=== PATIENT | female | born 1955 | race Caucasian/White ===

== ENCOUNTER 2016-12-15 13:50 | Emergency (ER) | payer MEDICARE, OTHER ==
[~2016-12-15] VITALS: Ht 162.6 cm; Wt 85.0 kg
[~2016-12-15 13:50] MED LIST: ACET1TAB40 PO; ASPI-664 PO; ATOR40TA68 PO; BENA10TA48 PO; CARV3.1260 PO; CHOL2000 PO; CITA-104 PO; FAMO40TA52 PO; GLUC100015 PO
[2016-12-15 14:16] VITALS: Ht 162.6 cm; Wt 85.0 kg
== END 2016-12-15 18:45 | disposition left against medical advice (07) ==
LOC: E/R 13:50
DX: Z53.21 Procedure and treatment not carried out due to patient leaving prior to being seen by health care provider (principal)

== ENCOUNTER 2017-01-07 20:50 | Emergency (ER) | payer MEDICARE, OTHER ==
[~2017-01-07] VITALS: Wt 72.5 kg
[2017-01-08] MEDS ORDERED: ONDANSETRON (ODT) 4 MG TAB ODT STA (01:23)
[2017-01-08] MEDS ORDERED: HYDROCODONE/APAP (5/325) TAB PO ONE (01:30)
[2017-01-08 01:49] LABS: URINE BLOOD (Dip) POC 1+ (NEGATIVE)
--- NOTE | 2017-01-08 01:51 | ERD ---
ER Documentation Chief Complaint Date/Time DATE: 01/08/17 TIME: 01:48 Chief Complaint COUGH AND HEADACHE FOR THE PAST FEW MOS. NO NEURO DEF. NO TRAUMA HPI This is a 61-year-old female who presents to the emergency department today complaining of cough for the past 3 months and a headache that started yesterday. Patient states she took tramadol for the headache with no improvement in symptoms. States she has some nausea but no vomiting. Denies any blurred vision, light sensitivity. Patient has been seen by her primary care physician and has had a chest x-ray done and is awaiting her results in a couple of days. Patient states that her cough is dry. Denies any fevers or chills or shortness of breath currently ROS All systems reviewed and are negative except as per history of present illness. Medications Home Meds Active Scripts Nitrofurantoin Monohyd Macrocr* (Macrobid*) 100 Mg Capsr, 100 MG PO BID for 7 Days, CAP Prov:STEVE JOHNSON PA-C 01/08/17 Azithromycin* (Zithromax*) 250 Mg Tablet, 250 MG PO .ROBERT DIRECTED, #6 TAB TAKE 500 MG (2 TABS) THE FIRST DAY THEN 250 MG (1 TAB) DAYS 2-5 Prov:STEVE JOHNSON PA-C 01/08/17 Naproxen* (Naprosyn*) 500 Mg Tablet, 500 MG PO BID Y for PAIN AND/OR INFLAMMATION, #30 TAB Prov:STEVE JOHNSONC 01/08/17 Hydrocodone/Acetaminophen ([place] 5-325 Tablet) 1 Each Tablet, 1 TAB PO Q6H Y for PAIN, #10 TAB Prov:STEVE JOHNSON PA-C 01/08/17 Carvedilol* (Carvedilol*) 3.125 Mg Tablet, 3.125 MG PO BID for 30 Days, #60 TAB Prov:ELIZ RENDON Y 08/21/16 Reported Medications Glucosamine Sulfate 2KCL (GLUCOSAMINE) 1,000 Mg Tablet, 1000 MG PO, TAB 08/21/16 Acetaminophen with Codeine (Acetaminophen-Cod #3 Tablet) 1 Each Tablet, 1 TAB PO Q6H Y for PRN, #20 TAB 08/20/16 Aspirin (Low Dose Aspirin) 81 Mg Tablet.dr, 81 MG PO DAILY, #30 TAB 7/19/16 Atorvastatin* (Atorvastatin*) 40 Mg Tablet, 40 MG PO QHS, #30 TAB 05/25/16 Citalopram Hydrobromide* (Citalopram Hydrobromide*) 40 Mg Tablet, 40 MG PO DAILY , #30 TAB 05/25/16 Cholecalciferol* (Vitamin D3*) 2,000 Unit Cap, 2000 UNIT PO DAILY, CAP 02/13/16 Famotidine* (Famotidine*) 40 Mg Tablet, 40 MG PO HS, TAB 05/17/15 Benazepril Hcl* (Benazepril Hcl*) 10 Mg Tablet, 10 MG PO DAILY, TAB 05/17/15 Allergies Allergies: Coded Allergies: Penicillins (Verified Allergy, Unknown, 08/20/16) PMhx/Soc History of Surgery: Yes (bilateral hip surgery; bladder lift) Anesthesia Reaction: No Hx Neurological Disorder: No Hx Respiratory Disorders: No Hx Cardiac Disorders: Yes (htn, hyperlipidemia) Hx Psychiatric Problems: Yes (anxiety) Hx Miscellaneous Medical Probl: No Hx Alcohol Use: No Hx Substance Use: No Hx Tobacco Use: No Smoking Status: Never smoker Physical Exam Vitals Vital Signs Date Time Temp Pulse Resp B/P Pulse Ox O2 Delivery O2 Flow Rate FiO2 01/07/17 20:54 98.8 74 20 143/65 98 Physical Exam Const: No acute distress Head: Atraumatic tenderness to palpation frontal and maxillary sinuses. Eyes: Normal Conjunctiva PERRLA. EOM intact. ENT: Ears TMs normal. Nose no drainage. Throat no erythema no exudate. Neck: Full range of motion..~ No meningismus. Resp: Clear to auscultation bilaterally. No absent breath sounds. No wheezing. Cardio: Regular rate and rhythm, no murmurs Abd: Soft, non tender, non distended. Normal bowel sounds Skin: No petechiae or rashes Neur: Awake and alert. No focal neurologic deficits. No gait ataxia. Psych: Normal Mood and Affect Results 24 hrs Laboratory Tests Test 01/08/17 01:52 Bedside Urine Blood 1+ Bedside Urine Glucose (UA) Negative Bedside Urine Ketones (LAB) Negative Bedside Urine Leukocyte Esterase (L Trace Bedside Urine Nitrite (LAB) Negative Bedside Urine Protein (LAB) Negative Bedside Urine pH (LAB) 5.5 Current Medications Medications (Trade) Dose Ordered Sig/Juan Route PRN Reason Start Time Stop Time Status Last Admin Dose Admin Acetaminophen/ Hydrocodone Bitart ([place] (5/325)) 1 tab ONCE ONCE PO 01/08/17 01:30 01/08/17 01:31 DC 01/08/17 01:32 Ondansetron HCl (Zofran Odt) 4 mg ONCE STAT ODT 01/08/17 01:23 01/08/17 01:24 DC 01/08/17 01:32 DIAGNOSTIC IMAGING REPORT Patient: ORLY DEL VALLE : 1955 Age: 61 Sex: F MR #: [id number] DOS: 01/08/17 0000 Ordering MD: STEVE JOHNSON PA-C Location: [facility] Room/Bed: PROCEDURE: CT head, without contrast. CLINICAL INDICATION: Headache. TECHNIQUE: Noncontrast CT examination of the head, with axial, sagittal and coronal reformatted images. Automated dose exposure control was employed. CTDI: 39.42 and DLP: 634.23. COMPARISON: 01/26/2016 FINDINGS: No acute hemorrhage. Subarachnoid spaces are substantially preserved and symmetric. Ventricles are unremarkable. No mass effect. Raymond-white matter distinction is preserved without evident decreased attenuation to suggest acute or recent infarct. Sinuses and osseous structures are unremarkable. IMPRESSION: No acute process in the head. RPTAT: UU Physician Nicole Date Time Electronically viewed and signed by Physician Nicole on 01/08/2017 02:38 RS/ CC: STEVE JOHNSON PA-C Procedures/MDM This is a 61-year-old female who presents to the emergency department today complaining of headache that started yesterday and a cough for the past 3 months. Given that patient has been seen by her primary care physician is waiting results for her x-ray results in 2 days I do not feel the patient requires a chest x-ray at this time. Her respirations are 20 her oxygen saturation is 98%. She is afebrile and otherwise well-appearing. I have low suspicion for pneumonia, PE, abscess, pneumothorax. I discussed the patient with Dr. Sutton and given that the patient has had complaints of headache in the past but this is worse I did obtain a head CT as requested by him. Head CT noncontrast shows no acute process in the head. There is no mass- effect. No acute hemorrhage. Low suspicion for acute hemorrhage, mass, abscess, meningitis. I also obtained a UA. UA shows trace leukocyte esterase. 1+ blood. Although patient denied any dysuria, patient will be given a prescription for Macrobid may possibly be a source of the patient's headache. Patient is afebrile and otherwise well- appearing. She has no flank pain. Low suspicion for pyelonephritis or nephrolithiasis. Patient was given [place] and Zofran here in the emergency department and headache improved.. I will give her a prescription for home as well as a prescription for azithromycin for possible sinusitis patient is allergic to penicillin Patient symptoms at this time is consistent with headache possibly related to sinusitis. At this time the patient is stable for discharge and outpatient management. Patient should follow up with their PCP in the next 1-2 days. They may return to the emergency department sooner for any persistent or worsening of symptoms. Patient understood and agreed with the plan. Departure Diagnosis: Primary Impression: Headache Headache type: unspecified Headache chronicity pattern: unspecified pattern Intractability: not intractable Qualified Code: R51 - Nonintractable headache, unspecified chronicity pattern, unspecified headache type Additional Impression: UTI (urinary tract infection) Urinary tract infection type: site unspecified Hematuria presence: with hematuria Qualified Code: N39.0 - Urinary tract infection with hematuria, site unspecified Condition: STEVE Tolliver PA-C Jan 08, 2017 01:51
--- NOTE | 2017-01-08 02:38 | RADRPT ---
PROCEDURE: CT head, without contrast. CLINICAL INDICATION: Headache. TECHNIQUE: Noncontrast CT examination of the head, with axial, sagittal and coronal reformatted im ages. Automated dose exposure control was employed. CTDI: 39.42 and DLP: 634.23. COMPARISON: 01/26/2016 FINDINGS: No acute hemorrhage. Subarachnoid spaces are substantially preserved and symmetric. Ventricles ar e unremarkable. No mass effect. Raymond-white matter distinction is preserved without evident decreased attenuation t o suggest acute or recent infarct. Sinuses and osseous structures are unremarkable. IMPRESSION: No acute process in the head. RPTAT: UU Physician Nicole Date Time Electronically viewed and signed by Physician Nicole on 01/08/2017 02:38 RS/
[2017-01-08] MEDS ORDERED: HYDR-906 PO (02:55)
[2017-01-08] MEDS ORDERED: NAPR-260 PO (02:56)
[2017-01-08] MEDS ORDERED: AZIT250T94 PO (02:57)
[2017-01-08] MEDS ORDERED: NITR-58 PO (02:59)
[2017-01-08 03:33] VITALS: BP 132/66; PULSE 69; RESP 16; TEMP 97.8
== END 2017-01-08 03:35 | disposition home or self-care (01) ==
LOC: FTE 20:50
DX: R51 Headache (principal); N39.0 Urinary tract infection, site not specified; R11.0 Nausea; I10 Essential (primary) hypertension; Z79.82 Long term (current) use of aspirin; Z96.643 Presence of artificial hip joint, bilateral
CPT/HCPCS: 70450; 81003

== ENCOUNTER 2017-03-04 19:49 | Emergency (ER) | payer OTHER, MEDICAID ==
[~2017-03-04] VITALS: Ht 160 cm; Wt 77.0 kg
[~2017-03-04 19:49] MED LIST changes: +AZIT250T94 PO; +HYDR-906 PO; +NAPR-260 PO; +NITR-58 PO
[2017-03-04 21:14] VITALS: Ht 160 cm; Wt 77.0 kg
[2017-03-04] MEDS ORDERED: LORAZEPAM 1 MG TAB PO ONE (22:00)
[2017-03-04 22:22] LABS: URINE BLOOD (Dip) POC 1+ (NEGATIVE)
[2017-03-04] MEDS ORDERED: CEPH500C PO (22:46)
[2017-03-04] MEDS ORDERED: NITR-58 PO (22:48)
--- NOTE | 2017-03-04 22:53 | ERD ---
ER Documentation Chief Complaint Date/Time DATE: 03/04/17 TIME: 22:51 Chief Complaint burning with urination for a week HPI This is a 61-year-old female presents to the ER with urinary frequency and dysuria for the last week. Patient denies any flank pain. She denies any nausea vomiting or diarrhea. She denies any fevers or chills. Patient has gotten many UTIs in the past. She denies any vaginal discharge. ROS 12 point review of systems was done, all negative except per HPI. Medications Home Meds Active Scripts Nitrofurantoin Monohyd Macrocr* (Macrobid*) 100 Mg Capsr, 100 MG PO BID for 7 Days, CAP Prov:CHRISTIANA RO 03/04/17 Nitrofurantoin Monohyd Macrocr* (Macrobid*) 100 Mg Capsr, 100 MG PO BID for 7 Days, CAP Prov:STEVE JOHNSON-C 01/08/17 Azithromycin* (Zithromax*) 250 Mg Tablet, 250 MG PO .ROBERT DIRECTED, #6 TAB TAKE 500 MG (2 TABS) THE FIRST DAY THEN 250 MG (1 TAB) DAYS 2-5 Prov:STEVE JOHNSON-C 01/08/17 Naproxen* (Naprosyn*) 500 Mg Tablet, 500 MG PO BID Y for PAIN AND/OR INFLAMMATION, #30 TAB Prov:STEVE JOHNSON-C 01/08/17 Hydrocodone/Acetaminophen ([place] 5-325 Tablet) 1 Each Tablet, 1 TAB PO Q6H Y for PAIN, #10 TAB Prov:STEVE JOHNSON-C 01/08/17 Carvedilol* (Carvedilol*) 3.125 Mg Tablet, 3.125 MG PO BID for 30 Days, #60 TAB Prov:ELIZ RENDON Y 08/21/16 Reported Medications Glucosamine Sulfate 2KCL (GLUCOSAMINE) 1,000 Mg Tablet, 1000 MG PO, TAB 08/21/16 Acetaminophen with Codeine (Acetaminophen-Cod #3 Tablet) 1 Each Tablet, 1 TAB PO Q6H Y for PRN, #20 TAB 08/20/16 Aspirin (Low Dose Aspirin) 81 Mg Tablet.dr, 81 MG PO DAILY, #30 TAB 05/25/16 Atorvastatin* (Atorvastatin*) 40 Mg Tablet, 40 MG PO QHS, #30 TAB 05/25/16 Citalopram Hydrobromide* (Citalopram Hydrobromide*) 40 Mg Tablet, 40 MG PO DAILY , #30 TAB 05/25/16 Cholecalciferol* (Vitamin D3*) 2,000 Unit Cap, 2000 UNIT PO DAILY, CAP 02/13/16 Famotidine* (Famotidine*) 40 Mg Tablet, 40 MG PO HS, TAB 05/17/15 Benazepril Hcl* (Benazepril Hcl*) 10 Mg Tablet, 10 MG PO DAILY, TAB 05/17/15 Allergies Allergies: Coded Allergies: Penicillins (Verified Allergy, Unknown, 08/20/16) PMhx/Soc History of Surgery: Yes (bilateral hip surgery; bladder lift) Anesthesia Reaction: No Hx Neurological Disorder: No Hx Respiratory Disorders: No Hx Cardiac Disorders: Yes (htn, hyperlipidemia) Hx Psychiatric Problems: Yes (anxiety) Hx Miscellaneous Medical Probl: Yes (MULTIPLE UTI) Hx Alcohol Use: No Hx Substance Use: No Hx Tobacco Use: No Smoking Status: Never smoker Physical Exam Vitals Vital Signs Date Time Temp Pulse Resp B/P Pulse Ox O2 Delivery O2 Flow Rate FiO2 03/04/17 21:14 98.2 85 24 172/71 99 Physical Exam GENERAL: Patient appears anxious, she has a history of anxiety. HEENT: Atraumatic. CHEST: Clear to auscultation bilaterally. There are no rales, wheezes or rhonchi. HEART: Regular rate and rhythm. No murmurs, clicks, rubs or gallops. ABDOMEN: Soft, nontender and nondistended. Good bowel sounds. No rebound or guarding. No gross peritonitis. No gross organomegaly or masses. No De León sign or McBurney point tenderness. BACK: No midline or flank tenderness. NEURO: Alert and oriented. SKIN: The skin is warm and dry. Results 24 hrs Laboratory Tests Test 03/04/17 22:24 Bedside Urine pH (LAB) 8.5 Bedside Urine Protein (LAB) Negative Bedside Urine Glucose (UA) Negative Bedside Urine Ketones (LAB) Negative Bedside Urine Blood 1+ Bedside Urine Nitrite (LAB) Negative Bedside Urine Leukocyte Esterase (L 1+ Current Medications Medications (Trade) Dose Ordered Sig/Juan Route PRN Reason Start Time Stop Time Status Last Admin Dose Admin Lorazepam (Ativan) 1 mg ONCE ONCE PO 03/04/17 22:00 03/04/17 22:01 DC 03/04/17 22:19 Procedures/MDM This is a 61-year-old female presents to the ER with urinary frequency and dysuria. At this time patient does not have any CVA tenderness or history of flank pain. I doubt pyelonephritis. Patient does not have any pelvic pain I doubt abdominal etiology. Patient is afebrile and well-appearing. She will be treated with Macrobid. Patient needs to follow-up with her primary care doctor within 1-2 days or return to ER sooner if symptoms worsen. My medical decision making was shared with the patient's daughter she understands and agrees with plan. Departure Diagnosis: Primary Impression: UTI (urinary tract infection) Condition: Stable Patient Instructions: Understanding Urinary Tract Infections (UTIs) Additional Instructions: Llame al doctor MAANA y wilbur john BAILEY PARA DENTRO DE 1-2 GUILLEN.Dgale a la secretaria que nosotros le instruimos hacer esta bailey.Avise o llame si ramos condicin se empeora antes de la bailey. Regresa aqui si peor o no mejor. CHRISTIANA RO Mar 04, 2017 22:53
[2017-03-04 23:30] VITALS: BP 135/63; PULSE 74; RESP 15; TEMP 98.8
== END 2017-03-04 23:30 | disposition home or self-care (01) ==
LOC: FTE 19:49
DX: N39.0 Urinary tract infection, site not specified (principal); I10 Essential (primary) hypertension; Z79.82 Long term (current) use of aspirin; Z96.643 Presence of artificial hip joint, bilateral
CPT/HCPCS: 81003; 99283

== ENCOUNTER → 2017-04-01 | Outpatient (CLI) | payer OTHER, MEDICAID ==
--- NOTE | 2017-04-01 16:52 | RADRPT ---
PROCEDURE: XR bilateral hips. CLINICAL INDICATION: Hip pain TECHNIQUE: AP pelvis/AP and lateral right and left hip views available for review. COMPARISON: 08/23/2016 FINDINGS: There are bilateral total hip replacements. There is normal mineralization, architecture and alignment. There is no evidence of loosening of th e prosthesis. There is no evidence of hardware failure. No fractures, dislocation or osseous lesions are identified. The joints are unremarkable. There are normal soft tissues. IMPRESSION: Bilateral total hip replacements. Otherwise unremarkable examination. RPTAT: HGDB .Endy Lilly MD, MD Date Time Electronically viewed and signed by .Endy Lilly MD, MD on 04/01/2017 16:52 .B/
== END | disposition home or self-care (01) ==
LOC: HKI 14:17
PROVIDERS: ATTEND Orthopaedic Surgery
DX: M54.16 Radiculopathy, lumbar region (principal); M51.36 Other intervertebral disc degeneration, lumbar region; Z96.643 Presence of artificial hip joint, bilateral
CPT/HCPCS: 73523; G0463

== ENCOUNTER 2017-08-13 14:47 | Emergency (ER) | END 2017-08-13 18:45 | disposition home or self-care (01) | DX: N30.90 Cystitis, unspecified without hematuria (principal); I10 Essential (primary) hypertension; Z79.82 Long term (current) use of aspirin | CPT/HCPCS: 81001; 96372; 99284; J0696 ==

== ENCOUNTER 2017-09-04 03:05 | Emergency (ER) | payer MEDICARE, OTHER ==
[~2017-09-04] VITALS: Ht 162.6 cm; Wt 86.5 kg
[~2017-09-04 03:05] MED LIST changes: +CEPH-443 PO; +PHEN-538 PO
[2017-09-04 03:07] VITALS: Ht 162.6 cm; Wt 86.5 kg
[2017-09-04] MEDS ORDERED: HYDROCODONE/APAP (5/325) TAB PO ONE (04:00)
--- NOTE | 2017-09-04 04:05 | ERD ---
ER Documentation Chief Complaint Chief Complaint low back pain running down to left hip to left leg and foot HPI 62-year-old female presents here to emergency department for complaints of left lower back pain radiating to the left lower leg and foot that started 2 days ago. Patient has a history of hip surgery done 3 years ago. Patient denies any injury of affected area. Patient describes the pain as sharp pain, 6/10 scale, radiates from the left lower back to the left lower leg. Patient denies any numbness or tingling. Patient denies any fever or chills. Patient denies any incontinence. ROS All systems reviewed and are negative except as per history of present illness. Medications Home Meds Active Scripts Phenazopyridine Hcl* (Pyridium*) 200 Mg Tab, 200 MG PO TID Y for URINARY PAIN, # 6 TAB Prov:MICKY WILL MD 08/13/17 Cephalexin* (Keflex*) 500 Mg Capsule, 500 MG PO QID for 7 Days, CAP Prov:MICKY WILL MD 08/13/17 Nitrofurantoin Monohyd Macrocr* (Macrobid*) 100 Mg Capsr, 100 MG PO BID for 7 Days, CAP Prov:CHRISTIANA RO 03/04/17 Nitrofurantoin Monohyd Macrocr* (Macrobid*) 100 Mg Capsr, 100 MG PO BID for 7 Days, CAP Prov:STEVE JOHNSON PA-C 01/08/17 Azithromycin* (Zithromax*) 250 Mg Tablet, 250 MG PO .ChloePACK DIRECTED, #6 TAB TAKE 500 MG (2 TABS) THE FIRST DAY THEN 250 MG (1 TAB) DAYS 2-5 Prov:STEVE JOHNSON PA-C 01/08/17 Naproxen* (Naprosyn*) 500 Mg Tablet, 500 MG PO BID Y for PAIN AND/OR INFLAMMATION, #30 TAB Prov:STEVE JOHNSON PA-C 01/08/17 Hydrocodone/Acetaminophen ([place] 5-325 Tablet) 1 Each Tablet, 1 TAB PO Q6H Y for PAIN, #10 TAB Prov:STEVE JOHNSON PA-C 01/08/17 Carvedilol* (Carvedilol*) 3.125 Mg Tablet, 3.125 MG PO BID for 30 Days, #60 TAB Prov:ELIZ RENDON Y 08/21/16 Reported Medications Glucosamine Sulfate 2KCL (GLUCOSAMINE) 1,000 Mg Tablet, 1000 MG PO, TAB 08/21/16 Acetaminophen with Codeine (Acetaminophen-Cod #3 Tablet) 1 Each Tablet, 1 TAB PO Q6H Y for PRN, #20 TAB 08/20/16 Aspirin (Low Dose Aspirin) 81 Mg Tablet.dr, 81 MG PO DAILY, #30 TAB 05/25/16 Atorvastatin* (Atorvastatin*) 40 Mg Tablet, 40 MG PO QHS, #30 TAB 05/25/16 Citalopram Hydrobromide* (Citalopram Hydrobromide*) 40 Mg Tablet, 40 MG PO DAILY , #30 TAB 05/25/16 Cholecalciferol* (Vitamin D3*) 2,000 Unit Cap, 2000 UNIT PO DAILY, CAP 02/13/16 Famotidine* (Famotidine*) 40 Mg Tablet, 40 MG PO HS, TAB 05/17/15 Benazepril Hcl* (Benazepril Hcl*) 10 Mg Tablet, 10 MG PO DAILY, TAB 05/17/15 Allergies Allergies: Coded Allergies: Penicillins (Verified Allergy, Unknown, 08/13/17) PMhx/Soc History of Surgery: Yes (HIPS, BLADDER) Anesthesia Reaction: No Hx Neurological Disorder: No Hx Respiratory Disorders: No Hx Cardiac Disorders: Yes (HTN, CHOLESTEROL) Hx Psychiatric Problems: Yes (ANXIETY) Hx Miscellaneous Medical Probl: Yes (MULTIPLE UTI) Hx Alcohol Use: No Hx Substance Use: No Hx Tobacco Use: No Smoking Status: Never smoker FmHx Family History: No coronary disease, No diabetes, No other Physical Exam Vitals Vital Signs Date Time Temp Pulse Resp B/P Pulse Ox O2 Delivery O2 Flow Rate FiO2 09/04/17 03:07 98.7 70 20 151/68 100 Physical Exam GENERAL: The patient is well developed and appropriate for usual state of health, in no apparent distress. CHEST: Clear to auscultation bilaterally. There are no rales, wheezes or rhonchi. HEART: Regular rate and rhythm. No murmurs, clicks, rubs or gallops. No S3 or S4. ABDOMEN: Soft, nontender and nondistended. Good bowel sounds. No rebound or guarding. No gross peritonitis. No gross organomegaly or masses. No De León sign or McBurney point tenderness. BACK: No midline or flank tenderness. Muscle spasms noted in the paraspinal aspect of the left lumbar spine. Able to do full range of motion without any restriction, positive straight leg test. EXTREMITIES: Equal pulses bilaterally. There is no peripheral clubbing, cyanosis or edema. No focal swelling or erythema. Full range of motion. Grossly neurovascularly intact. NEURO: Alert and oriented. Cranial nerves 2-12 intact. Motor strength in all 4 extremities with 5/5 strength. Sensation grossly intact. Normal speech and gait. SKIN: There is no apparent rash or petechia. The skin is warm and dry. HEMATOLOGIC AND LYMPHATIC: There is no evidence of excessive bruising or lymphedema. No gross cervical, axillary, or inguinal lymphadenopathy. Results 24 hrs Current Medications Medications (Trade) Dose Ordered Sig/Juan Route PRN Reason Start Time Stop Time Status Last Admin Dose Admin Acetaminophen/ Hydrocodone Bitart ([place] (5/325)) 1 tab ONCE ONCE PO 09/04/17 04:00 09/04/17 04:01 DC 09/04/17 03:48 Patient was given medication for pain here in emergency department, after treatment, patient verbalized feeling much better. Patient's pain is improved. PROCEDURE: CT Lumbar Spine. CLINICAL INDICATION: Left back pain TECHNIQUE: The study was performed on a multidetector CT scanner. Spiral axial 1 mm images were obtained through the lumbar spine and reformatted at 2.5 mm slice thickness. Sagittal and coronal reformations were created from the raw axial data. The images were reviewed on a PACS workstation. The administered radiation dose was CTDI vol = 28.24 mGy, DLP = 665.85 mGy-cm. One or more the following dose reduction techniques were utilized: Automated exposure control, adjustment of the mA and / or kV according to patient's size, or use of iterative reconstruction technique. COMPARISON: No prior studies are available for comparison. FINDINGS: The vertebral bodies demonstrate normal height, alignment and osseous mineralization. Small amount of calcification in abdominal aorta and iliac arteries. T12-L1: The disc and neuroforamina are unremarkable. L1-L2: The disc and neuroforamina are unremarkable. L2-L3: The disc and neuroforamina are unremarkable. L3-L4: Mild diffuse disc bulge. L4-L5: Disc space narrowing, vertebral body osteophyte formation, diffuse disc bulge , mild facet and ligamentum flavum hypertrophy with moderate central spinal stenosis and mild bilateral foraminal stenosis. L5-S1: Diffuse disc bulge IMPRESSION: No acute fracture or dislocation seen. Degenerative changes. Moderate central spinal stenosis and mild bilateral foraminal stenosis at L4-5. Please see above. RPTAT: HJES .Tom Phelps MD, MD Date Time Electronically viewed and signed by .Tom Phelps MD, MD on 09/04/2017 04:40 .S/ CC: BRAULIO GRANADSO [employer]PATCHER Procedures/MDM Medical Decision Making: Patient's pain is most likely consistent with a back strain. There is no suspicion for neurovascular compromise. Patient has intact sensation and circulation of the affected extremity and distal extremities. No incontinence, no suspicion for cauda equina syndrome, no saddle anesthesia, no symptoms of any acute bacterial infection, no symptoms of any perirectal abscesses, pilonidal cyst.There is low suspicion for septic arthritis. Patient does not have any fever. No symptoms of any aortic dissection or aortic aneurysm. Radiology exam no fracture or dislocation. Disposition: Home. Patient is given prescription for ibuprofen for mild to moderate pain, [place] for severe pain, Gabapentin. Patient was advised to avoid heavy lifting , apply warm compresses on affected area. Patient was advised that if symptoms are worse, numbness, tingling, high fever, unable to move joint , worsening symptoms, to return to emergency department immediately. Otherwise, patient is advised to follow up with the primary care doctor in 5-7 days for reevaluation of symptoms. Disclaimer: Inadvertent spelling and grammatical errors are likely due to EHR/ dictation software use and do not reflect on the overall quality of patient care. Also, please note that the electronic time recorded on this note does not necessarily reflect the actual time of the patient encounter. Departure Diagnosis: Primary Impression: Back pain Back pain location: low back pain Chronicity: acute Back pain laterality: left Sciatica presence: with sciatica Sciatica laterality: sciatica of left side Qualified Code: M54.42 - Acute left-sided low back pain with left-sided sciatica Condition: Stable Patient Instructions: Back Pain W/ Sciatica Additional Instructions: Patient is given prescription for ibuprofen for mild to moderate pain, [place]orn for severe pain, Gabapentin. Patient was advised to avoid heavy lifting , apply warm compresses on affected area. Patient was advised that if symptoms are worse , numbness, tingling, high fever, unable to move joint, worsening symptoms, to return to emergency department immediately. Otherwise, patient is advised to follow up with the primary care doctor in 5-7 days for reevaluation of symptoms. BRAULIO GRANADOS NP Sep 04, 2017 04:05
--- NOTE | 2017-09-04 04:40 | RADRPT ---
PROCEDURE: CT Lumbar Spine. CLINICAL INDICATION: Left back pain TECHNIQUE: The study was performed on a multidetector CT scanner. Spiral axial 1 mm images were o btained through the lumbar spine and reformatted at 2.5 mm slice thickness. Sagittal and coronal ref ormations were created from the raw axial data. The images were reviewed on a PACS workstation. The administered radiation dose was CTDI vol = 28.24 mGy, DLP = 665.85 mGy-cm. One or more the following dose reduction techniques were utilized: Automated exposure control, adjus tment of the mA and / or kV according to patient's size, or use of iterative reconstruction techniqu e. COMPARISON: No prior studies are available for comparison. FINDINGS: The vertebral bodies demonstrate normal height, alignment and osseous mineralization. Small amount of calcification in abdominal aorta and iliac arteries. T12-L1: The disc and neuroforamina are unremarkable. L1-L2: The disc and neuroforamina are unremarkable. L2-L3: The disc and neuroforamina are unremarkable. L3-L4: Mild diffuse disc bulge. L4-L5: Disc space narrowing, vertebral body osteophyte formation, diffuse disc bulge , mild facet an d ligamentum flavum hypertrophy with moderate central spinal stenosis and mild bilateral foraminal s tenosis. L5-S1: Diffuse disc bulge IMPRESSION: No acute fracture or dislocation seen. Degenerative changes. Moderate central spinal stenosis and mi ld bilateral foraminal stenosis at L4-5. Please see above. RPTAT: HJES .Tom Phelps MD, Date Time Electronically viewed and signed by .Tom Phelps MD, MD on 09/04/2017 04:40 .S/
[2017-09-04] MEDS ORDERED: IBUP400T22 PO (04:51)
[2017-09-04] MEDS ORDERED: GABA300C16 PO (04:51)
[2017-09-04] MEDS ORDERED: HYDR-906 PO (04:51)
== END 2017-09-04 05:09 | disposition home or self-care (01) ==
LOC: FTE 03:05
DX: M54.42 Lumbago with sciatica, left side (principal); I10 Essential (primary) hypertension; Z79.82 Long term (current) use of aspirin
CPT/HCPCS: 72131

== ENCOUNTER 2017-11-12 21:05 | Emergency (ER) | END 2017-11-13 00:55 | disposition left against medical advice (07) ==

== ENCOUNTER 2017-11-14 11:44 | Emergency (ER) | END 2017-11-14 18:26 | disposition home or self-care (01) ==

== ENCOUNTER 2018-05-02 17:00 | Emergency (ER) | END 2018-05-02 18:40 | disposition home or self-care (01) ==

== ENCOUNTER 2018-09-06 16:00 | Emergency (ER) | END 2018-09-06 19:03 | disposition home or self-care (01) ==

== ENCOUNTER 2018-09-08 11:49 | Emergency (ER) | END 2018-09-08 15:15 | disposition home or self-care (01) ==

== ENCOUNTER 2019-04-16 13:29 | Emergency (ER) | payer OTHER, MEDICAID ==
[~2019-04-16] VITALS: Ht 167.6 cm; Wt 89.8 kg
[~2019-04-16 13:29] MED LIST changes: -ASPI-664 PO; +ASPI81TA52 PO; +AZIT250T PO; -AZIT250T94 PO; +BENA10TA4 PO; -BENA10TA48 PO; +BENZ200C68 PO; +CIPR500T4 PO; -CITA-104 PO; +CITA40TA6 PO; +FAMO40TA5 PO; -FAMO40TA52 PO; +FLUT9.9S NASAL; +GABA300C16 PO; +HYDR-3980 PO; +HYDR-4011 PO; -HYDR-906 PO; +IBUP-1561 PO; -NAPR-260 PO; +NAPR-985 PO; +ONDA4TAB14 PO; +OXYB5TAB22 PO; +TAMS-14 PO
[2019-04-16 13:32] VITALS: BP 121/61; PULSE 59; RESP 18; Ht 167.6 cm; Wt 89.8 kg
[2019-04-16] MEDS ORDERED: ONDANSETRON (ODT) 4 MG TAB ODT STA (14:32)
[2019-04-16] MEDS ORDERED: HYDR-4011 PO (14:34)
[2019-04-16] MEDS ORDERED: NAPR-985 PO (14:34)
[2019-04-16] MEDS ORDERED: PRED20TA PO (14:34)
--- NOTE | 2019-04-16 14:41 | ERD ---
ER Documentation Chief Complaint Chief Complaint lower back pain, slip & almost fell on tuesday, HPI 63-year-old female presenting with lower back pain after trip and fall 2 days ago. Patient states she did a modified split after she slipped on wet rosa. She has a history of sciatica and spinal compression. She states that the incident elicited more pain that extending down her buttock. She is been taking tramadol with no alleviation of symptoms. She has a surgery scheduled in May for back surgery. Denies any numbness or tingling and is able to walk with a walker. Medical history is sciatica, hypertension, anxiety, depression, hypercholesterolemia. Allergy to penicillin. Surgical history denies. ROS All systems reviewed and are negative except as per history of present illness. Medications Home Meds Active Scripts Naproxen* (Naprosyn*) 500 Mg Tablet, 500 MG PO BID PRN for PAIN AND/OR INFLAMMATION, #30 TAB Prov:SAMIA RUIZ PA-C 04/16/19 Hydrocodone/Acetaminophen ([place] 5-325 Tablet) 1 Each Tablet, 1 TAB PO Q6H PRN for PAIN, #7 TAB Prov:SAMIA RUIZ PA-C 04/16/19 Prednisone* (Prednisone*) 20 Mg Tab, 40 MG PO DAILY for 4 Days, TAB Prov:SAMIA RUIZ PA-C 04/16/19 Ondansetron (Ondansetron Odt) 4 Mg Tab.rapdis, 4 MG PO Q6H PRN for NAUSEA AND/OR VOMITING, #10 TAB Prov:NEVIN HYLTON MD 09/08/18 Hydrocodone/Acetaminophen ([place] 10-325 Tablet) 1 Each Tablet, 1 TAB PO Q6H PRN for PAIN, #20 TAB Prov:ONEYDA PRYOR DO 09/06/18 Tamsulosin Hcl* (Flomax*) 0.4 Mg Cap.er.24h, 0.4 MG PO BID, #3 CAP Prov:ONEYDA PRYOR ADorys DO 09/06/18 Ciprofloxacin Hcl* (Ciprofloxacin Hcl*) 500 Mg Tablet, 500 MG PO BID for 5 Days, TAB Prov:ONEYDA PRYOR DO 09/06/18 Benzonatate* (Benzonatate*) 200 Mg Capsule, 200 MG PO TID PRN for COUGH, #15 CAP Prov:CHI SANTOS PA-C 05/02/18 Ibuprofen* (Motrin*) 400 Mg Tab, 400 MG PO Q6, #30 TAB Prov:CHI SANTOS PA-C 05/02/18 Fluticasone Propionate (Flonase Allergy Relief) 9.9 Ml [place].susp, 1 SPRAY NASAL BID, #1 BOTTLE TO EACH NOSTRIL Prov:CHI SANTOS PA-C 05/02/18 Azithromycin* (Zithromax*) 250 Mg Tablet, 250 MG PO .ZPACK DIRECTED, #6 TAB TAKE 500 MG (2 TABS) THE FIRST DAY THEN 250 MG (1 TAB) DAYS 2-5 Prov:CHI SANTOS PA-C 05/02/18 Oxybutynin Chloride* (Ditropan* XL) 5 Mg Tabsr, 5 MG PO DAILY for 30 Days, TAB.SA Prov:ORLY MOBLEY MD 11/14/17 Ibuprofen* (Motrin*) 400 Mg Tab, 400 MG PO Q6H PRN for PAIN AND OR ELEVATED TEMP, #30 TAB Prov:BRAULIO GRANADOS NP 09/04/17 Gabapentin* (Gabapentin*) 300 Mg Capsule, 300 MG PO BID, #60 CAP Prov:BRAULIO GRANADOS NP 09/04/17 Hydrocodone/Acetaminophen ([place] 5-325 Tablet) 1 Each Tablet, 1 TAB PO Q6H PRN for SEVERE PAIN LEVEL 7-10, #20 TAB Prov:BRAULIO GRANADOS NP 09/04/17 Phenazopyridine Hcl* (Pyridium*) 200 Mg Tab, 200 MG PO TID PRN for URINARY PAIN, #6 TAB Prov:MICKY WILL MD 08/13/17 Cephalexin* (Keflex*) 500 Mg Capsule, 500 MG PO QID for 7 Days, CAP Prov:MICKY WILL MD 08/13/17 Nitrofurantoin Monohyd Macrocr* (Macrobid*) 100 Mg Capsr, 100 MG PO BID for 7 Da ys, CAP Prov:CHRISTIANA RO 03/04/17 Nitrofurantoin Monohyd Macrocr* (Macrobid*) 100 Mg Capsr, 100 MG PO BID for 7 Days, CAP Prov:STEVE JOHNSON-C 01/08/17 Azithromycin* (Zithromax*) 250 Mg Tablet, 250 MG PO .ROBERT DIRECTED, #6 TAB TAKE 500 MG (2 TABS) THE FIRST DAY THEN 250 MG (1 TAB) DAYS 2-5 Prov:STEVE JOHNSON-C 01/08/17 Naproxen* (Naprosyn*) 500 Mg Tablet, 500 MG PO BID PRN for PAIN AND/OR INFLAMMATION, #30 TAB Prov:STEVE JOHNSON-C 01/08/17 Hydrocodone/Acetaminophen ([place] 5-325 Tablet) 1 Each Tablet, 1 TAB PO Q6H PRN for PAIN, #10 TAB Prov:STEVE JOHNSON-C 01/08/17 Carvedilol* (Carvedilol*) 3.125 Mg Tablet, 3.125 MG PO BID for 30 Days, #60 TAB Prov:ELIZ RENDON 08/21/16 Reported Medications Glucosamine Sulfate 2KCL (GLUCOSAMINE) 1,000 Mg Tablet, 1000 MG PO, TAB 08/21/16 Acetaminophen with Codeine (Acetaminophen-Cod #3 Tablet) 1 Each Tablet, 1 TAB PO Q6H PRN for PRN, #20 TAB 08/20/16 Aspirin (Low Dose Aspirin) 81 Mg Tablet.dr, 81 MG PO DAILY, #30 TAB 05/25/16 Atorvastatin* (Atorvastatin*) 40 Mg Tablet, 40 MG PO QHS, #30 TAB 05/25/16 Citalopram Hydrobromide* (Citalopram Hydrobromide*) 40 Mg Tablet, 40 MG PO DAILY, #30 TAB 05/25/16 Cholecalciferol* (Vitamin D3*) 2,000 Unit Cap, 2000 UNIT PO DAILY, CAP 02/13/16 Famotidine* (Famotidine*) 40 Mg Tablet, 40 MG PO HS, TAB 05/17/15 Benazepril Hcl* (Benazepril Hcl*) 10 Mg Tablet, 10 MG PO DAILY, TAB 05/17/15 Allergies Allergies: Coded Allergies: Penicillins (Verified Allergy, Unknown, 05/02/18) PMhx/Soc History of Surgery: Yes (figueroa hip replacement, BLADDER lifted) Anesthesia Reaction: No Hx Neurological Disorder: No Hx Respiratory Disorders: No Hx Cardiac Disorders: Yes (HTN, CHOLESTEROL) Hx Psychiatric Problems: Yes (ANXIETY,depression) Hx Miscellaneous Medical Probl: Yes (MULTIPLE UTI) Hx Alcohol Use: No Hx Substance Use: No Hx Tobacco Use: No FmHx Family History: No diabetes, No coronary disease, No other Physical Exam Vitals Vital Signs Date Temp Pulse Resp B/P (MAP) Pulse Ox O2 O2 Flow FiO2 Time Delivery Rate 04/16/19 98.5 59 18 121/61 96 13:32 (81) Physical Exam GENERAL: The patient is well-appearing, well-nourished, in no acute distress CHEST: Clear to auscultation bilaterally. There are no rales, wheezes or rhonchi. HEART: Regular rate and rhythm. No murmurs, clicks, rubs or gallops. ABDOMEN:Soft, nontender and nondistended. Good bowel sounds. No rebound or guarding. No gross peritonitis. No gross organomegaly or masses. BACK: No midline or flank tenderness. Tender to palpation over the left back extending down left buttock. EXTREMITIES: Equal pulses bilaterally. There is no peripheral clubbing, cyanosis or edema. No focal swelling or erythema. Full range of motion. Grossly neurovascularly intact. NEUROLOGIC: Alert and oriented. Cranial nerves II through XII intact. Motor strength in all 4 extremities with 5 out of 5 strength. Sensation grossly intact. Normal speech and gait. SKIN: There is no apparent rash or petechiae. The skin is warm and dry. Results 24 hrs Current Medications Medications Dose Sig/Juan Start Time Status Last (Trade) Ordered Route PRN Stop Time Admin Dose Reason Admin 10 mg ONCE ONCE 04/16/19 Dexamethasone IM 15:00 (Decadron) 04/16/19 15:01 1 tab ONCE ONCE 04/16/19 Acetaminophen PO 15:00 / 04/16/19 15:01 Hydrocodone Bitart ([place] (5/325)) Ondansetron 4 mg ONCE STAT 04/16/19 DC HCl (Zofran ODT 14:32 Odt) 04/16/19 14:33 Procedures/MDM ER course: Toradol and [place] given in ED. DM: 63-year-old female presenting with back pain. I have low suspicion for acute fracture dislocation. Patient likely aggravated her sciatic nerve pain causing her discharged with supportive medications. Patient is told symptoms change or worsen to return immediately to the ER. All questions answered at discharge Departure Diagnosis: Primary Impression: Back pain Condition: Stable Patient Instructions: Back Pain W/ Sciatica Referrals: COMMUNITY CLINICS YOU HAVE RECEIVED A MEDICAL SCREENING EXAM AND THE RESULTS INDICATE THAT YOU DO NOT HAVE A CONDITION THAT REQUIRES URGENT TREATMENT IN THE EMERGENCY DEPARTMENT. FURTHER EVALUATION AND TREATMENT OF YOUR CONDITION CAN WAIT UNTIL YOU ARE SEEN IN YOUR DOCTORS OFFICE WITHIN THE NEXT 1-2 DAYS. IT IS YOUR RESPONSIBILITY TO MAKE AN APPOINTMENT FOR FOLOW-UP CARE. IF YOU HAVE A PRIMARY DOCTOR --you should call your primary doctor and schedule an appointment IF YOU DO NOT HAVE A PRIMARY DOCTOR YOU CAN CALL OUR PHYSICIAN REFERRAL HOTLINE AT IF YOU CAN NOT AFFORD TO SEE A PHYSICIAN YOU CAN CHOSE FROM THE FOLLOWING REPLACED BY [facility] [id number] [facility] [address] [facility] [facility] [address] [facility] [address] [facility] [address] [facility] [facility]. [address] Additional Instructions: FOLLOW UP WITH YOUR PRIMARY CARE PHYSICIAN TOMORROW.Return to this facility if you are not improving as expected. SAMIA RUIZ PA-C Apr 16, 2019 14:41
[2019-04-16] MEDS ORDERED: HYDROCODONE/APAP (5/325) TAB PO ONE (15:00)
[2019-04-16] MEDS ORDERED: DEXAMETHASONE 10 MG/ML 1 ML INJ IM ONE (15:00)
== END 2019-04-16 14:53 | disposition home or self-care (01) ==
LOC: FTE 13:29
DX: M54.5 Low back pain (principal); I10 Essential (primary) hypertension; Z96.643 Presence of artificial hip joint, bilateral; Z79.82 Long term (current) use of aspirin
CPT/HCPCS: 96372; 99284; J1100

== ENCOUNTER 2019-05-07 05:24 | Observation (INO) | payer OTHER, MEDICAID ==
[2019-05-04 13:26] VITALS: BMI 32.3
[2019-05-07] VITALS (22 sets, daily range): BP systolic 105–141; BP diastolic 51–64; PULSE 59–74; RESP 14–18; Ht 165.1 cm; Wt 89.6 kg
[~2019-05-07] VITALS: Ht 165.1 cm; Wt 89.6 kg
[~2019-05-07 05:24] MED LIST changes: +PRED20TA PO
[2019-05-07] MEDS ORDERED: LACTATED RINGER'S 1,000 ML IV SCH (06:00)
[2019-05-07] MEDS ORDERED: CITA20TA11 PO (06:58)
[2019-05-07] MEDS ORDERED: NABU-81 PO (06:59)
[2019-05-07] MEDS ORDERED: NITR-58 PO (07:00)
[2019-05-07] MEDS ORDERED: ATOR-2 PO (07:00)
[2019-05-07] MEDS ORDERED: ASPI81TA52 PO (07:01)
[2019-05-07] MEDS ORDERED: FAMO40TA5 PO (07:01)
[2019-05-07] MEDS ORDERED: PROP60CA7 PO (07:02)
[2019-05-07] MEDS ORDERED: PRED20TA PO (07:03)
[2019-05-07] MEDS ORDERED: GELATIN SIZE 100 SPONGE ONE (07:04)
[2019-05-07] MEDS ORDERED: POLYMYXIN/BACITRACIN 1L IRRIG ONE (07:04)
[2019-05-07] MEDS ORDERED: BUPIVACAINE 0.5%/EPI (SDV) 30 ML INJ ONE (07:04)
[2019-05-07] MEDS ORDERED: THROMBIN 5000 UNIT VIAL ONE (07:04)
--- NOTE | 2019-05-07 07:17 | PREAC ---
Date/Time of Note Date/Time of Note DATE: 05/07/19 TIME: 07:13 Anesthesia Eval and Record Evaluation Time Pre-Procedure Interview DATE: 05/07/19 TIME: 07:13 Age 63 Sex female NPO: 8 hrs Preoperative diagnosis l4-5 left paracentral disc herniation with facet and liagemntum hypertrophy with laterl recess stenosis with radiculopathy; 2. Lumbar 5-S1 left paracentral disc herniation with facet and ligamentum hypertrophy with lateral recess stenosis with radiculpathy Planned procedure left L4-5 and L5-S1 lumbar decompression with discetomy Past Medical History Past Medical History: Includes Cardio: HTN, Dyslipidemia Endo: Diabetes (pre), Hypothyroid GI: GERD Surgery & Anesthesia Issues No known issue Meds Anticoagulation: No Beta Reina within 24 hr: Yes Reported Medications Prednisone* (Prednisone*) 20 Mg Tab, 20 MG PO DAILY, TAB 05/07/19 Propranolol Hcl* (Inderal* LA) 60 Mg Cap.sa.24h, 60 MG PO DAILY, CAP 05/07/19 Famotidine* (Famotidine*) 40 Mg Tablet, 40 MG PO HS, #30 TAB 05/07/19 Aspirin (Low Dose Aspirin) 81 Mg Tablet.dr, 81 MG PO DAILY, #30 TAB 05/07/19 Nitrofurantoin Monohyd Macrocr* (Macrobid*) 100 Mg Capsr, 100 MG PO BID, CAP 05/07/19 Atorvastatin* (Atorvastatin*) 80 Mg Tablet, 80 MG PO QHS, #30 TAB 05/07/19 Nabumetone* (Nabumetone*) 500 Mg Tablet, 500 MG PO BID, TAB 05/07/19 Citalopram Hydrobromide* (Celexa*) 20 Mg Tablet, 20 MG PO DAILY, #30 TAB 05/07/19 Discontinued Reported Medications Glucosamine Sulfate 2KCL (GLUCOSAMINE) 1,000 Mg Tablet, 1000 MG PO, TAB 08/21/16 Acetaminophen with Codeine (Acetaminophen-Cod #3 Tablet) 1 Each Tablet, 1 TAB PO Q6H PRN for PRN, #20 TAB 08/20/16 Aspirin (Low Dose Aspirin) 81 Mg Tablet.dr, 81 MG PO DAILY, #30 TAB 05/25/16 Atorvastatin* (Atorvastatin*) 40 Mg Tablet, 40 MG PO QHS, #30 TAB 7/19/16 Citalopram Hydrobromide* (Citalopram Hydrobromide*) 40 Mg Tablet, 40 MG PO DAILY, #30 TAB 05/25/16 Cholecalciferol* (Vitamin D3*) 2,000 Unit Cap, 2000 UNIT PO DAILY, CAP 02/13/16 Famotidine* (Famotidine*) 40 Mg Tablet, 40 MG PO HS, TAB 05/17/15 Benazepril Hcl* (Benazepril Hcl*) 10 Mg Tablet, 10 MG PO DAILY, TAB 05/17/15 Discontinued Scripts Naproxen* (Naprosyn*) 500 Mg Tablet, 500 MG PO BID PRN for PAIN AND/OR INFLAM MATION, #30 TAB Prov:SAMIA RUIZ PA-C 04/16/19 Hydrocodone/Acetaminophen ([place] 5-325 Tablet) 1 Each Tablet, 1 TAB PO Q6H PRN for PAIN, #7 TAB Prov:SAMIA RUIZ PA-C 04/16/19 Prednisone* (Prednisone*) 20 Mg Tab, 40 MG PO DAILY for 4 Days, TAB Prov:SAMIA RUIZ PA-C 04/16/19 Ondansetron (Ondansetron Odt) 4 Mg Tab.rapdis, 4 MG PO Q6H PRN for NAUSEA AND/OR VOMITING, #10 TAB Prov:NEVIN HYLTON MD 09/08/18 Hydrocodone/Acetaminophen ([place] 10-325 Tablet) 1 Each Tablet, 1 TAB PO Q6H PRN for PAIN, #20 TAB Prov:ONEYDA PRYOR DO 09/06/18 Tamsulosin Hcl* (Flomax*) 0.4 Mg Cap.er.24h, 0.4 MG PO BID, #3 CAP Prov:MARCELLO PRYORS Le[place] DO 09/06/18 Ciprofloxacin Hcl* (Ciprofloxacin Hcl*) 500 Mg Tablet, 500 MG PO BID for 5 Days, TAB Prov:ONEYDA PRYOR DO 09/06/18 Benzonatate* (Benzonatate*) 200 Mg Capsule, 200 MG PO TID PRN for COUGH, #15 CAP Prov:CHI SANTOSC 05/02/18 Ibuprofen* (Motrin*) 400 Mg Tab, 400 MG PO Q6, #30 TAB Prov:CHI SANTOS PA-C 05/02/18 Fluticasone Propionate (Flonase Allergy Relief) 9.[address] [place]susp, 1 SPRAY NASAL BID, #1 BOTTLE TO EACH NOSTRIL Prov:CHI SANTOS PA-C 05/02/18 Azithromycin* (Zithromax*) 250 Mg Tablet, 250 MG PO .ZPACK DIRECTED, #6 TAB TAKE 500 MG (2 TABS) THE FIRST DAY THEN 250 MG (1 TAB) DAYS 2-5 Prov:CHI SANTOS PA-C 05/02/18 Oxybutynin Chloride* (Ditropan* XL) 5 Mg Tabsr, 5 MG PO DAILY for 30 Days, TAB.SA Prov:ORLY MOBLEY MD 11/14/17 Ibuprofen* (Motrin*) 400 Mg Tab, 400 MG PO Q6H PRN for PAIN AND OR ELEVATED TEMP, #30 TAB Prov:BRAULIO GRANADOS NP 09/04/17 Gabapentin* (Gabapentin*) 300 Mg Capsule, 300 MG PO BID, #60 CAP Prov:BRAULIO GRANADOS DEPUTY CLERK OF COURT 09/04/17 Hydrocodone/Acetaminophen ([place] 5-325 Tablet) 1 Each Tablet, 1 TAB PO Q6H PRN f or SEVERE PAIN LEVEL 7-10, #20 TAB Prov:BRAULIO GARNADOS NP 09/04/17 Phenazopyridine Hcl* (Pyridium*) 200 Mg Tab, 200 MG PO TID PRN for URINARY PAIN, #6 TAB Prov:MICKY WILL MD 08/13/17 Cephalexin* (Keflex*) 500 Mg Capsule, 500 MG PO QID for 7 Days, CAP Prov:MICKY WILL MD 08/13/17 Nitrofurantoin Monohyd Macrocr* (Macrobid*) 100 Mg Capsr, 100 MG PO BID for 7 Days, CAP Prov:CHRISTIANA RO 03/04/17 Nitrofurantoin Monohyd Macrocr* (Macrobid*) 100 Mg Capsr, 100 MG PO BID for 7 Days, CAP Prov:STEVE JOHNSON PA-C 01/08/17 Azithromycin* (Zithromax*) 250 Mg Tablet, 250 MG PO .ChloePACK DIRECTED, #6 TAB TAKE 500 MG (2 TABS) THE FIRST DAY THEN 250 MG (1 TAB) DAYS 2-5 Prov:STEVE JOHNSON PA-C 01/08/17 Naproxen* (Naprosyn*) 500 Mg Tablet, 500 MG PO BID PRN for PAIN AND/OR INFLAMMATION, #30 TAB Prov:STEVE JOHNSON PA-C 01/08/17 Hydrocodone/Acetaminophen ([place] 5-325 Tablet) 1 Each Tablet, 1 TAB PO Q6H PRN for PAIN, #10 TAB Prov:STEVE JOHNSON PA-C 01/08/17 Carvedilol* (Carvedilol*) 3.125 Mg Tablet, 3.125 MG PO BID for 30 Days, #60 TAB Prov:ELIZ RENDON 08/21/16 Current Medications Lactated Ringer's 1,000 ml @ 0 mls/hr Q0M IV ; Start 05/07/19 at 06:00; Stop 05/07/19 at 23:00 Meds reviewed: Yes Allergies Coded Allergies: Penicillins (Verified Allergy, Unknown, 05/07/19) Allergies Reviewed: Yes Labs/Studies Labs Reviewed: Reviewed by anesthesiologist Result Diagram: 05/07/19 0600 Laboratory Tests 05/07/19 06:00 test: N/A Studies: ECG Pre-procedure Exam Last vitals Vital Signs Date Temp Pulse Resp B/P (MAP) Pulse Ox O2 O2 Flow FiO2 Time Delivery Rate 05/07/19 98.6 74 18 141/64 97 05:45 (89) Airway: Adequate mouth opening, Adequate thyromental dist Mallampati: Mallampati III Teeth: Normal (capp to #8) Lung: Normal Heart: Normal ASA Physical Status ASA physical status: 3 Emergency: None Planned Anesthetic General/MAC: ETT Planned Pain Management Parenteral pain med, Local by surgeon Pre-operative Attestations Prior to commencing anesthesia and surgery, the patient was re-evaluated, there was verification of: *The patient's identity *The results of appropriate recent lab work and preoperative vital signs *The above evaluation not changing prior to induction *Anesthetic plan, risk benefits, alternative and complications discussed with patient/family; questions answered; patient/family understands, accepts and wishes to proceed. DAVIE CASAREZ CRNA May 07, 2019 07:17
--- NOTE | 2019-05-07 07:17 | HPN ---
Date/Time of Note Date/Time of Note DATE: 05/07/19 TIME: 07:17 Interval H&P Admission Note Pt. seen H&P reviewed: No system changes MARIO ALBERTO ROLDAN MD May 07, 2019 07:17
[2019-05-07] MEDS ORDERED: PROPOFOL 20 ML ONE ×5 (07:20→11:10)
[2019-05-07] MEDS ORDERED: FENTAnyl 50 MCG/ML VIAL ONE (07:21)
[2019-05-07] MEDS ORDERED: CLINDAMYCIN 900 MG/D5W (PMX) 50 ML IVPB ONE (07:53)
[2019-05-07] MEDS ORDERED: FAMOTIDINE 20 MG INJ ONE (08:01)
[2019-05-07] MEDS ORDERED: DEXAMETHASONE 4 MG/ML 5 ML INJ ONE (08:01)
[2019-05-07] MEDS ORDERED: HYDROmorphONE 2 MG/ML SYG ONE (08:03)
[2019-05-07] MEDS ORDERED: EPHEDrine 25 MG/5 ML SYG ONE (08:12)
[2019-05-07] MEDS ORDERED: HEMOSTATIC MATRIX/ THROMBIN 1 EA SYG ZFS ONE (08:36)
[2019-05-07] MEDS ORDERED: SUCCINYLCHOLINE CHLORIDE 100 MG/5 ML SYG IV ONE (08:37)
[2019-05-07] MEDS ORDERED: ROCURONIUM 50 MG INJ ONE (08:37)
[2019-05-07] MEDS ORDERED: LIDOCAINE 2% (SDV) 5 ML INJ ONE (08:37)
[2019-05-07] MEDS ORDERED: GLYCOPYRROLATE 0.4 MG INJ ONE (10:41)
[2019-05-07] MEDS ORDERED: NEOSTIGMINE 3 MG/3 ML SYRINGE ONE ×2 (10:41→11:03)
[2019-05-07] MEDS ORDERED: ONDANSETRON 4 MG INJ ONE (10:41)
--- NOTE | 2019-05-07 11:20 | OPR ---
Date/Time of Note Date/Time of Note DATE: 05/07/19 TIME: 11:07 Operative Report Free Text/Dictation DATE OF OPERATION: 05/07/2019 PREOPERATIVE DIAGNOSES: 1. Left sided L4-L5 lateral recess stenosis with L5 radiculopathy 2. Left sided L4-5 paracentral disk herniation with L5 radiculopathy 3. Left sided L5-S1 lateral recess stenosis with S1 radiculopathy 4. Left sided L5-S1 paracentral disk herniation with S1 radiculopathy POSTOPERATIVE DIAGNOSES: 1. Left sided L4-L5 lateral recess stenosis with L5 radiculopathy 2. Left sided L4-5 paracentral disk herniation with L5 radiculopathy 3. Left sided L5-S1 lateral recess stenosis with S1 radiculopathy 4. Left sided L5-S1 paracentral disk herniation with S1 radiculopathy OPERATION PERFORMED: 1. Left L4-L5 karen-laminectomy, medial facetectomy, and foraminotomy 2. Left sided L4-5 microdiskectomy 3. Left L5-S1 karen-laminectomy, medial facetectomy, and foraminotomy 4. Left sided L5-S1 microdiskectomy 5. Interpretation of neuromonitoring SURGEON: Mario Alberto Roldan MD [employer]IM CREW SUPERVISOR: BILLIE Giang ANESTHESIA: General endotracheal ESTIMATED BLOOD LOSS: 50 mL SURGICAL INDICATION: The patient is a 61 year-old female who presents with a several year history of worsening left lower extremity pain with left sided L5 and S1 radiculopathy. She was found to have left sided lateral recess stenosis at L4-L5 and L5-S1 which correlated well with her symptoms. The patient had failed conservative treatment. Risks, benefits, and alternatives to a L5-S1 and L4-5 microdecompression with microdiskectomy were explained to the patient and t hey wished to proceed. Risks explained included but were not exclusive of bleeding, infection, cauda equina syndrome, nerve injury, dural tear, iatrogenic instability requiring fusion, recurrent disc herniation, fracture, vascular injury, bowel injury, stroke, heart attack and pulmonary embolism. DESCRIPTION OF TECHNIQUE: The patient was identified in the preoperative area and taken to the operating room. Rapid induction of general endotracheal anesthesia was performed. The patient was given 900mg of IV clindamycin for prophylaxis. The patient was then placed in the prone position on the Al frame on a Jean Paul flat top table with all prominences well padded. The back was prepped and draped in the usual sterile manner. Using a spinal needle and intraoperative fluoroscopy, the appropriate level was clearly identified (L4- L5). The skin was injected using 0.25% Marcaine with epinephrine. Longitudinal midline incision was then created using a 10 blade. Further dissection through soft tissue was performed using electrocautery down to the left spinous processes .Dissection was taken down the lamina and over the facet joint capsule. A self-retaining retractor was applied. Again, intraoperative fluoroscopy confirmed the level. The high-speed bur was used to thin the left L4 lamina. Kerrison rongeurs were then used to resect a the left L4 lamina, and a portion of the medial facet and the bone overlying the foramen. Ligamentum flavum was also resected using the Kerrison rongeurs. Care was taken to protect the thecal sac throughout the decompressive procedure. A nerve root retractor was used to mobilize and retract the L5 nerve root and thecal sac medialy. The L4-5 disc was identified and was noted to be partially calcified. A soft disc extrusion was noted and I used a 15 blade to inscise the pseudoannulus. Several disc fragments were removed to a stable base. Palpation with a ball-tip probe did not reveal any further stenosis in the central, subarticular, or foraminal areas. The exiting L4 nerve root and traversing L5 nerve roots were both directly visualized and noted to be decompressed. The cephalad and caudad extent of the decompression were also confirmed using ball-tip probes and intraoperative fluoroscopy. The disc was noted to be hard and no significant soft herniations were noted. We then focused our attention on the left sided L5-S1 decompression procedure. We extended our incision distally sing a 10 blade. Further dissection through soft tissue was performed using electrocautery down to the left L5 spinous pro cess. Dissection was taken down the left lamina and over the facet joint capsule. A self-retaining retractor was applied. Again, intraoperative fluoroscopy confirmed the level. The microscope was brought into use for microdissection. The high-speed bur was used to thin the left L5 lamina. Kerrison rongeurs were then used to resect the L5 lamina, and a portion of the medial facet and the bone overlying the foramen. Ligamentum flavum was also resected using the Kerrison rongeurs. Care was taken to protect the thecal sac throughout the decompressive procedure. A nerve root retractor was used to mobilize and retract the left S1 nerve root and thecal sac medialy. The L5-S1 disc was identified. A soft disc protrusion was noted and I used a 15 blade to inscise the pseudoannulus. Several portions of disc fragments were removed to a stable base. Palpation with a ball-tip probe did not reveal any further stenosis in the central, subarticular, or foraminal areas. The exiting left L5 nerve root and traversing S1 nerve roots were both directly visualized and noted to be decompressed. The left L5 and S1 pedicles were palpated using a gracie to ens ure a pedicle to pedicle decompression. The cephalad and caudad extent of the decompression were also confirmed using ball-tip probes and intraoperative fluoroscopy. Meticulous attention was then paid towards hemostasis using FloSeal as well as Gelfoam and thrombin. Care was taken to remove all FloSeal and Gelfoam prior to wound closure. The fascia was then closed using 0 Vicryl in an interrupted fashion over a medium hemovac. Subcutaneous tissue was closed using 2-0 Vicryl in an interrupted fashion. The skin was closed using a running 4-0 Monocryl stitch. The wound was dressed using Dermabond and a 4x4 sterile gauze. The patient was returned to the supine position. He was extubated immediately postoperatively and taken to the recovery room in stable condition. Procedure Date: May 07, 2019 Preoperative Diagnosis 1. Left sided L4-L5 lateral recess stenosis with L5 radiculopathy 2. Left sided L4-5 paracentral disk herniation with L5 radiculopathy 3. Left sided L5-S1 lateral recess stenosis with S1 radiculopathy 4. Left sided L5-S1 paracentral disk herniation with S1 radiculopathy Postoperative Diagnosis 1. Left sided L4-L5 lateral recess stenosis with L5 radiculopathy 2. Left sided L4-5 paracentral disk herniation with L5 radiculopathy 3. Left sided L5-S1 lateral recess stenosis with S1 radiculopathy 4. Left sided L5-S1 paracentral disk herniation with S1 radiculopathy Operation/Procedure Performed 1. Left L4-L5 karen-laminectomy, medial facetectomy, and foraminotomy 2. Left sided L4-5 microdiskectomy 3. Left L5-S1 karen-laminectomy, medial facetectomy, and foraminotomy 4. Left sided L5-S1 microdiskectomy 5. Interpretation of neuromonitoring Surgeon see signature line Intensive Care Nurse BILLIE Giang Anesthesia Type: general Estimated Blood Loss: 10 - 50 ml's Transfusion none Specimen L4-5 and L5-S1 disk Grafts/Implants none Tubes/Drains medium hemovac Complications none Pt Condition Post Procedure: stable Disposition: PACU Procedure Description DESCRIPTION OF TECHNIQUE: The patient was identified in the preoperative area and taken to the operating room. Rapid induction of general endotracheal anesthesia was performed. The patient was given 900mg of IV clindamycin for prophylaxis. The patient was then placed in the prone position on the Al frame on a Jean Paul flat top table with all prominences well padded. The back was prepped and draped in the usual sterile manner. Using a spinal needle and intraoperative fluoroscopy, the appropriate level was clearly identified (L4- L5). The skin was injected using 0.25% Marcaine with epinephrine. Longitudinal midline incision was then created using a 10 blade. Further dissection through soft tissue was performed using electrocautery down to the left spinous processes .Dissection was taken down the lamina and over the facet joint capsule. A self-retaining retractor was applied. Again, intraoperative fluoroscopy confirmed the level. The high-speed bur was used to thin the left L4 lamina. Kerrison rongeurs were then used to resect a the left L4 lamina, and a portion of the medial facet and the bone overlying the foramen. Ligamentum flavum was also resected using the Kerrison rongeurs. Care was taken to protect the thecal sac throughout the decompressive procedure. A nerve root retractor was used to mobilize and retract the L5 nerve root and thecal sac medialy. The L4-5 disc was identified and was noted to be partially calcified. A soft disc extrusion was noted and I used a 15 blade to inscise the pseudoannulus. Several disc fragments were removed to a stable base. Palpation with a ball-tip probe did not reveal any further stenosis in the central, subarticular, or foraminal areas. The exiting L4 nerve root and traversing L5 nerve roots were both directly visualized and noted to be decompressed. The cephalad and caudad extent of the decompression were also confirmed using ball-tip probes and intraoperative fluoroscopy. The disc was noted to be hard and no significant soft herniations were noted. We then focused our attention on the left sided L5-S1 decompression procedure. We extended our incision distally sing a 10 blade. Further dissection through soft tissue was performed using electrocautery down to the left L5 spinous process. Dissection was taken down the left lamina and over the facet joint capsule. A self-retaining retractor was applied. Again, intraoperative fluoroscopy confirmed the level. The microscope was brought into use for microdissection. The high-speed bur was used to thin the left L5 lamina. Kerrison rongeurs were then used to resect the L5 lamina, and a portion of the medial facet and the bone overlying the foramen. Ligamentum flavum was also resected using the Kerrison rongeurs. Care was taken to protect the thecal sac throughout the decompressive procedure. A nerve root retractor was used to mobilize and retract the left S1 nerve root and thecal sac medialy. The L5-S1 disc was identified. A soft disc protrusion was noted and I used a 15 blade to inscise the pseudoannulus. Several portions of disc fragments were removed to a stable base. Palpation with a ball-tip probe did not reveal any further stenosis in the central, subarticular, or foraminal areas. The exiting left L5 nerve root and traversing S1 nerve roots were both directly visualized and noted to be decompressed. The left L5 and S1 pedicles were palpated using a gracie to ensure a pedicle to pedicle decompression. The cephalad and caudad extent of the decompression were also confirmed using ball-tip probes and intraoperative fluoroscopy. Meticulous attention was then paid towards hemostasis using FloSeal as well as Gelfoam and thrombin. Care was taken to remove all FloSeal and Gelfoam prior to wound closure. The fascia was then closed using 0 Vicryl in an interrupted fashion over a medium hemovac. Subcutaneous tissue was closed using 2-0 Vicryl in an interrupted fashion. The skin was closed using a running 4-0 Monocryl stitch. The wound was dressed using Dermabond and a 4x4 sterile gauze. The patient was returned to the supine position. He was extubated immediately postoperatively and taken to the recovery room in stable condition. MARIO ALBERTO ROLDAN MD May 07, 2019 11:18
[2019-05-07] MEDS ORDERED: NALOXONE (0.4 MG/ML) INJ IV PRN (11:30)
[2019-05-07] MEDS ORDERED: FENTAnyl 50 MCG/ML VIAL IV PRN (11:30)
[2019-05-07] MEDS ORDERED: AL HYDROX/MG HYDROX/SIMETH 30 ML CUP PO PRN (11:30)
[2019-05-07] MEDS ORDERED: HYDROmorphONE 1 MG/5 ML IV SYRINGE IV PRN ×2 (11:30)
[2019-05-07] MEDS ORDERED: NACL 0.9% 3 ML SYG IV SCH (11:30)
[2019-05-07] MEDS ORDERED: HYDROmorphONE 0.5 MG/0.5 ML SYG IV PRN (11:30)
[2019-05-07] MEDS ORDERED: MEPERIDINE 25 MG INJ IV PRN (11:30)
[2019-05-07] MEDS ORDERED: PROCHLORPERAZINE 10 MG TAB PO PRN (11:30)
[2019-05-07] MEDS ORDERED: ACETAMINOPHEN 325 MG TAB PO PRN (11:30)
[2019-05-07] MEDS ORDERED: MIDAZOLAM 1 MG/ML 2 ML INJ IV PRN (11:30)
[2019-05-07] MEDS ORDERED: ONDANSETRON 4 MG INJ IV PRN ×2 (11:30)
[2019-05-07] MEDS ORDERED: HYDROCODONE/APAP (5/325) TAB PO PRN ×2 (11:30)
[2019-05-07] MEDS ORDERED: METOCLOPRAMIDE 10 MG INJ IV PRN (11:30)
--- NOTE | 2019-05-07 11:46 | PAC ---
Date/Time of Note Date/Time of Note DATE: 05/07/19 TIME: 11:44 Post-Anesthesia Notes Post-Anesthesia Note Last documented vital signs Vital Signs Date Temp Pulse Resp B/P (MAP) Pulse Ox O2 O2 Flow FiO2 Time Delivery Rate 05/07/19 98.6 74 18 141/64 97 05:45 (89) Activity: WNL Respiratory function: WNL Cardiovascular function: WNL Mental status: Baseline Pain reasonably controlled: Yes Hydration appropriate: Yes Nausea/Vomiting absent: Yes Comments BP 106/45 HR 72 Sp02 98 RR 14 Temp 98.5F DAVIE CASAREZ JAVA ENGINEER May 07, 2019 11:46
[2019-05-07] MEDS: VANCOMYCIN 1 GM (PMX) 250 ML IVPB SCH ×2 (13:09→23:23)
--- NOTE | 2019-05-07 15:51 | CONS ---
DATE OF ADMISSION: 05/07/2019 DATE OF CONSULTATION: 05/07/2019 TYPE OF CONSULTATION: Medical. Thank you, Dr. Roldan, for participating me in the medical management of this patient. REASON FOR CONSULTATION: To manage the patient's hypertension, depression, hyperlipidemia. HISTORY OF PRESENT ILLNESS: This 63-year-old female is now postop a lumbar spine surgery. The patient preoperatively was having low back pain with radiation down her left leg. She also had numbness and tingling in the leg and foot. She was having more and more difficulty walking. She failed medical management and decided to undergo surgery. She did undergo a surgery today by Dr. Roldan. She had a left L4 to L5 level hemilaminectomy, medial fasciotomy and foraminotomy with a microdiscectomy at the L4 to L5 level and then left L5 to S1 hemilaminectomy, medial facetectomy and foraminotomy with microdiskectomy. The patient is now awake and alert. She denies pain. Her daughter is in the room with her. The patient is mostly Pashto-speaking and the daughter is able to translate. CURRENT MEDICATIONS: Have included: 1. Nitrofurantoin 100 mg twice a day. 2. Atorvastatin. 3. Nabumetone 500 mg twice a day. 4. Citalopram 20 mg a day. 5. Aspirin 81 mg a day. 6. Famotidine 40 mg a day. 7. Propranolol 60 mg a day. 8. Tramadol for pain. 9. Naprosyn for pain. 10. She was taking prednisone but stopped preoperatively. PAST MEDICAL HISTORY: Hypertension, hyperlipidemia, recurrent urinary tract infections, depression, interstitial cystitis, gastroesophageal reflux disease without esophagitis, panic attacks, prediabetes. ALLERGIES: SHE IS ALLERGIC TO PENICILLIN. PAST SURGICAL HISTORY: Hip replacement and history of bladder surgery. SOCIAL HISTORY: She denies alcohol consumption. 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 FAMILY HISTORY: Positive for breast cancer. PHYSICAL EXAMINATION: GENERAL: At this time reveals a well-developed female in no apparent distress. VITAL SIGNS: Blood pressure 116/57, O2 saturation 99% on 2-liter nasal cannula, pulse of 70. HEENT: Head is normocephalic. Eyes: Extraocular muscles are intact. Nose and mouth are normal. NECK: Supple. No neck vein distention. LUNGS: Clear to auscultation. HEART: Regular rate, rhythm. No murmurs, gallops or rubs. ABDOMEN: Soft, nontender. EXTREMITIES: No peripheral edema. IMPRESSION: This patient is now postop a lumbosacral spine surgery. She is awake and alert and seems comfortable. Her vital signs are stable. She is afebrile. I will manage her medical problems including hypertension, prediabetes, hyperlipidemia and urinary tract infections. PLAN: 1. Resume some routine medications. 2. Postop lumbosacral spine surgery protocol. 3. Check labs in the morning. 4. I will follow the patient along with you. Dictated By: KAITLIN RAMOS MD ND/NTS Conf#: [id number] DID#: [id number] CC: JUNIOR JARRELL MD; MARIO ALBERTO ROLDAN MD;*EndCC* MTDD
[2019-05-07] MEDS ORDERED: ATORVASTATIN 80 MG TAB PO SCH (21:00)
[2019-05-07] MEDS ORDERED: FAMOTIDINE 20 MG TAB PO SCH (21:00)
[2019-05-08 08:11] VITALS: BP 117/66; PULSE 63; RESP 18
[2019-05-08] MEDS ORDERED: DOCUSATE SODIUM 100 MG CAP PO SCH (09:00)
[2019-05-08] MEDS ORDERED: PROPRANOLOL (LA) 60 MG CAP PO SCH (09:00)
[2019-05-08] MEDS ORDERED: CITALOPRAM 20 MG TAB PO SCH (09:00)
--- NOTE | 2019-05-08 12:24 | PDOCDIS ---
Discharge Instructions CONDITION [id number] Patient Condition: [id number] Good HOME CARE INSTRUCTIONS: [id number] Diet Instructions: [id number] Regular ACTIVITY: [id number] Activity Restrictions: [id number] Slowly Increase Activity Rest between Activity Avoid heavy lifting Do not Drive Avoid Heavy Housework [id number] Bathing Restrictions: [id number] Tub Bath FOLLOW UP/APPOINTMENTS Follow-up Plan Follow-up w/ Dr. Roldan in 2 weeks MARIO ALBERTO ROLDAN MD May 08, 2019 12:24
--- NOTE | 2019-05-08 13:22 | CONS ---
Assessment/Plan Assessment/Plan Hospital Course (Demo Recall) 1. Juana is now 1 day postop a lumbar sacral spine surgery. She is doing well. She has been up with physical therapy and has been cleared to be discharged. 2. Her vital signs and laboratory tests are acceptable. She is afebrile and her blood pressure is under good control. She can be discharged to home today and to resume some of her regular medications. I will see her on an as-needed basis. Consultation Date/Type/Reason Admit Date/Time May 07, 2019 at 13:21 Initial Consult Date Date/Time of Note DATE: 05/08/19 TIME: 13:20 24 HR Interval Summary Free Text/Dictation Juana is now 1 day postop a lumbar sacral spine surgery. She is feeling well. She has been up with physical therapy. Constitutional: no complaints, improved Exam/Review of Systems Exam Vitals Vital Signs Date Temp Pulse Resp B/P (MAP) Pulse Ox O2 O2 Flow FiO2 Time Delivery Rate 05/08/19 98.3 63 18 117/66 98 Nasal 08:11 (83) Cannula 05/07/19 2.0 15:45 Intake and Output 05/07/19 05/07/19 05/08/19 1515:00 23:00 07:00 IntakeIntake Total 1000 ml 250 ml 250 ml OutputOutput Total 95 ml 340 ml 30 ml BalanceBalance 905 ml -90 ml 220 ml Constitutional: alert, oriented, well developed Respiratory: clear to auscultation, normal air movement Cardiovascular: regular rate and rhythm Gastrointestinal: soft, non-tender Musculoskeletal: nl extremities to inspection Results Result Diagram: 05/08/19 0425 05/08/19 0425 Results 24hrs Laboratory Tests Test 05/08/19 04:25 05/08/19 07:42 Hemoglobin 11.5 L Hematocrit 33.3 L Sodium Level 140 Potassium Level 4.1 Chloride Level 108 Carbon Dioxide Level 26 Anion Gap 6 Blood Urea Nitrogen 12 Creatinine 0.52 Est Glomerular Filtrat Rate mL/min > 60 Glucose Level 124 Calcium Level 9.1 Lab Scanned Report REFERENCE LAB Medications Medication Current Medications Acetaminophen/ Hydrocodone Bitart ([place] (5/325)) 1 tab Q4H PRN PO .PAIN 1-5; Start 05/07/19 at 11:30 Acetaminophen/ Hydrocodone Bitart ([place] (5/325)) 2 tab Q4H PRN PO .PAIN 6-10; Start 05/07/19 at 11:30 Prochlorperazine (Compazine) 10 mg Q4H PRN PO NAUSEA/VOMITING; Start 05/07/19 at 11:30 Ondansetron HCl (Zofran Inj) 4 mg Q6H PRN IV NAUSEA/VOMITING; Start 05/07/19 at 11:30 Al Hydrox/Mg Hydrox/Simethicone (Mag-Al Plus) 15 ml Q4H PRN PO .CONSTIPATION; Start 05/07/19 at 11:30 Docusate Sodium (Colace) 100 mg BID PO ; Start 05/08/19 at 09:00 Acetaminophen (Tylenol Tab) 650 mg Q4H PRN PO TEMP GREATER THAN 101F OR REYES Last administered on 05/08/19at 08:18; Admin Dose 650 MG; Start 05/07/19 at 11:30 Naloxone HCl (Narcan) 0.2 mg Q2M PRN IV RR 8 BREATHS/MIN OR LESS; Start 05/07/19 at 11:30 Hydromorphone HCl (Dilaudid) 0.5 mg Q4H PRN IV SEVERE PAIN LEVEL 7-10; Start 05/07/19 at 11:30 Atorvastatin Calcium (Lipitor) 80 mg QHS PO Last administered on 05/07/19at 20:44; Admin Dose 80 MG; Start 05/07/19 at 21:00 Citalopram Hydrobromide (Celexa) 20 mg DAILY PO Last administered on 05/08/19at 08:20; Admin Dose 20 MG; Start 05/08/19 at 09:00 Famotidine (Pepcid) 40 mg HS PO Last administered on 05/07/19at 20:44; Admin Dose 40 MG; Start 05/07/19 at 21:00 Propranolol HCl (Inderal La) 60 mg DAILY PO Last administered on 05/08/19 08:19; Admin Dose 60 MG; Start 05/08/19 at 09:00 KAITLIN RAMOS MD May 08, 2019 13:22
== END 2019-05-08 13:45 | disposition home or self-care (01) ==
LOC: SDS 05:24 → EDSTATUS 07:30 → MS1 13:21 → SDS 13:22
PROVIDERS: ADMIT Orthopaedic Surgery; ATTEND Orthopaedic Surgery
DX: M48.061 Spinal stenosis, lumbar region without neurogenic claudication (principal); M51.16 Intervertebral disc disorders with radiculopathy, lumbar region; I10 Essential (primary) hypertension; E78.5 Hyperlipidemia, unspecified; K21.9 Gastro-esophageal reflux disease without esophagitis; Z79.82 Long term (current) use of aspirin
CPT/HCPCS: 63030; 63035; 72100; 80048; 80053; 85014; 85018; 85610; 85730; 88304; 97116; 97161; 97530; G0378; J1100; J1170; J2405; J2710; J3010; J3370